=== PATIENT | male | born 1965 | race African-American/Black ===

== ENCOUNTER 2020-11-06 17:34 | Emergency (ER) | payer OTHER ==
[~2020-11-06] VITALS: Ht 170.2 cm; Wt 102.3 kg
[~2020-11-06 17:34] MED LIST: ALDACTONE25 MG PO; AZITHROMYCIN500 MG PO; COREG6.25 MG PO; OMNICEF300 MG PO; PERCOCET 5-3251 TAB PO; SEPTRA DS PO
[2020-11-06 17:50] VITALS: BP 143/92; Ht 170.2 cm; Wt 102.3 kg
[2020-11-06] MEDS ORDERED: CEPHALEXIN500 M1 PO (18:59)
== END 2020-11-06 19:11 | disposition home or self-care (01) ==
LOC: D.ER 17:34
DX: S61.412A Laceration without foreign body of left hand, initial encounter (principal); I10 Essential (primary) hypertension; Z72.0 Tobacco use; W26.0XXA Contact with knife, initial encounter; Y93.9 Activity, unspecified; Y92.9 Unspecified place or not applicable

== ENCOUNTER 2020-11-16 10:14 | Emergency (ER) | payer OTHER ==
[~2020-11-16] VITALS: Ht 170.2 cm; Wt 102.3 kg
[~2020-11-16 10:14] MED LIST changes: +CEPHALEXIN500 M1 PO
[2020-11-16 10:30] VITALS: Ht 170.2 cm; Wt 102.3 kg
== END 2020-11-16 10:38 | disposition home or self-care (01) ==
LOC: D.ER 10:14
DX: Z48.02 Encounter for removal of sutures (principal); I10 Essential (primary) hypertension

== ENCOUNTER → 2020-12-26 09:02 | Outpatient (CLI) | payer OTHER ==
[2020-11-16 10:30] VITALS: BMI 35.3
--- NOTE | ~2020-12-26 | EC ---
PATIENT:KINA WHITAKER DATE OF SERVICE: 12/26/20 SEX: M MEDICAL RECORD: [id number] DATE OF : [birth year] LOCATION:D[facility] AGE OF PATIENT: 55 ADMISSION DATE: 12/26/20 REFERRING PHYSICIAN: INTERPRETING PHYSICIAN: JOSÉ PAGE MD ECHOCARDIOGRAM REPORT ECHO CHARGES 4 ECHO COMPLETE Date: 12/26/20 CLINICAL DIAGNOSIS: CARDIOMYOPATHY, ASSESS EF/MITRAL/TRICUSPID REGURG ECHOCARDIOGRAPHIC MEASUREMENTS (adult normal given) AC root (d.<3.7cm) 3.7 cm LV Septum d (<1.2 cm> 1.6 cm Valve Excursion 1.9 cm LV Septum (systole) 1.7 cm Left Atria (s.<4.0cm> 4.5 cm LVPW d(<1.2cm) 1.7 cm RV (d.<2.3cm) 3.7 cm LVPW (sytole) 1.8 cm LV diastole(<5.6CM) 6.7 cm MV E-F(>70mm/sec) cm LV systole 5.5 cm LVOT Diameter 2.2 cm MV exc.(>10mm) 1.6 cm Est.ejection fraction (50-75%) % DOPPLER: LVIT cm/sec A 63.0 cm/sec E 51.0 cm/sec LA cm/sec RVSP 23 mmHg LVOT 89 cm/sec AOP1/2T m/s Asc. Ao 119 cm/sec RVOT 65 cm/sec RA cm/sec PA 96 cm/sec AV Gradient Peak 5.63 mmHg AV Mean 3.28 mmHg AV Area 2.9 cm MV Gradient Peak 2.27 mmHg MV Mean 1.15 mmHg MV Area cm COMMENTS: Drying Room Attendant: 2 VANDANA THORNTON Sales Associate Key Holder: 3 Dr. Flowers TAPE# PACS Pericardial Effusion N DATE OF SERVICE: Adequate 2D, color flow imaging, spectral Doppler, and M-Mode LVH is present. LV internal dimension is dilated at 6.7 cm. LV is globally hypokinetic with reduced EF, estimated EF 40% to 45%. Aortic valve is tricuspid. No evidence of stenosis by Doppler interrogation. Left atrium is dilated at 4.5 cm. Mitral valve shows no prolapse. [id number] MR. Right side is grossly normal. Mild TR. ECHOCARDIOGRAM REPORT [id number] KINA WHITAKER TRANSINT:[id number] Voice Confirmation ID: [id number] DOCUMENT ID: [id number] JOSÉ PAGE MD CC: [id number] DICTATION DATE: 12/27/20 1415 PREPARATION SUPERVISOR FREEZING: 12/27/20 1523 DEP CLI 12/26/20 [place] [id number] [place] [id number]
== END | disposition home or self-care (01) ==
LOC: D.HCCECHO 09:02
PROVIDERS: ATTEND Internal Medicine Interventional Cardiology
DX: I42.9 Cardiomyopathy, unspecified (principal)